=== PATIENT | female | born 1970 | race Caucasian/White ===

== ENCOUNTER 2017-09-12 11:55 | Emergency (ER) | payer BC ==
[2017-09-12 12:08] VITALS: BP 127/80; PULSE 82; TEMP 98.7; BMI 37.4
[2017-09-12] MEDS ORDERED: SODIUM CHLORIDE 0.9% 500 ML INFUS.BAG IV ONE (13:00)
--- NOTE | 2017-09-12 13:00 | PDOC ---
History of Present Illness - General Chief Complaint: Respiratory Stated Complaint: COUGH Time Seen by Provider: 09/12/17 12:37 - History of Present Illness Initial Comments: 09/12/17 13:03 47-year-old female with a history of ulcerative colitis presents with cough and back pain. Patient was diagnosed with the flu 3 days ago by her primary doctor and was started on Tamiflu. She reports she has had fevers, body aches, nausea, and nonproductive cough for 1 week. She presents today because she has developed back pain that is worse when she turns in bed and when she coughs. Denies trauma. She states the pain is in her right upper back but also in the left upper back. She reports the pain in her right upper back is greater than the left. She reports fevers with a MAXIMUM TEMPERATURE of 102 last week and reports she last had a fever this morning to 100.1. Additionally, she reports that she has been having some nonbloody diarrhea and mucousy urine. Denies dysuria, hematuria or frequency. Denies any headaches, stiff neck, vomiting, chest pain, shortness of breath, abdominal pain, lower extremity edema, focal weakness or numbness. She has been compliant with the Tamiflu but only started it 3 days ago when it was prescribed. She states she has been taking Tylenol for fever intermittently for the last week. She is concerned that she may have pneumonia. Past History - Past Medical History Allergies/Adverse Reactions: Allergies Allergy/AdvReac Type Severity Reaction Status Date / Time No Known Allergies Allergy Verified 09/12/17 11:57 Home Medications: Ambulatory Orders Guaifenesin Dm [Robitussin Dm -] 10 ml PO Q4H PRN 09/12/17 Iron/Folic AC/Vit Bcomp,C/Min [Ferrocite Plus Tablet] 1 each PO BID 09/12/17 Mercaptopurine [Purinethol -] 50 mg PO HS 09/12/17 Mesalamine [Lialda] 4 tab PO AM 09/12/17 Omeprazole 40 mg PO HS 09/12/17 Oseltamivir Phosphate [Tamiflu] 75 mg PO BID 09/12/17 Anemia: No Asthma: No Cancer: No Cardiac Disorders: No CVA: No COPD: No CHF: No Dementia: No Diabetes: No GI Disorders: Yes (PUD, ULCERATIVE COLITIS) Disorders: No HTN: No Hypercholesterolemia: No Liver Disease: No Seizures: No Thyroid Disease: No - Surgical History Abdominal Surgery: Yes (ABDOMINOPLASTY LAPARASCOPIC GASTRIC BANDING) Appendectomy: No Cardiac Surgery: No Cholecystectomy: No Lung Surgery: No Neurologic Surgery: No - Suicide/Smoking/Psychosocial Hx Smoking History: Former smoker Have you smoked in the past 12 months: No Number of Cigarettes Smoked Daily: 0 If you are a former smoker, when did you quit?: 1992 Information on smoking cessation initiated: No Hx Alcohol Use: No Drug/Substance Use Hx: No Substance Use Type: None Hx Substance Use Treatment: No Review of Systems - Review of Systems Comments:: 09/12/17 13:07 GENERAL/CONSTITUTIONAL: +fevers, no chills. No weakness. HEAD, EYES, EARS, NOSE AND THROAT: No change in vision. No ear pain or discharge. No sore throat. GASTROINTESTINAL: +nausea, diarrhea, no vomiting or constipation. GENITOURINARY: No dysuria, frequency, or change in urination. CARDIOVASCULAR: No chest pain or shortness of breath. RESPIRATORY: +cough, nowheezing, or hemoptysis. MUSCULOSKELETAL: +bodyaches and back pain SKIN: No rash NEUROLOGIC: No headache, vertigo, loss of consciousness, or change in strength/ sensation. ENDOCRINE: No increased thirst. No abnormal weight change. HEMATOLOGIC/LYMPHATIC: No anemia, easy bleeding, or history of blood clots. ALLERGIC/IMMUNOLOGIC: No hives or skin allergy. *Physical Exam - Vital Signs Last Vital Signs Temp Pulse Resp BP Pulse Ox 98.7 F 82 18 127/80 98 09/12/17 11:55 09/12/17 11:55 09/12/17 11:55 09/12/17 11:55 09/12/17 11:55 - Physical Exam Comments: 09/12/17 13:09 GENERAL: Awake, alert, and fully oriented, in no acute distress HEAD: No signs of trauma EYES: PERRLA, EOMI, sclera anicteric, conjunctiva clear ENT: Auricles normal inspection, hearing grossly normal, nares patent, oropharynx clear without exudates. Moist mucosa NECK: Normal ROM, supple, no lymphadenopathy, JVD, or masses LUNGS: Breath sounds equal, clear to auscultation bilaterally. No wheezes, and no crackles HEART: Regular rate and rhythm, normal S1 and S2, no murmurs, rubs or gallops ABDOMEN: Soft, nontender, normoactive bowel sounds. No guarding, no rebound. No masses EXTREMITIES: Normal range of motion, no edema. No clubbing or cyanosis. No cords, erythema, or tenderness NEUROLOGICAL: Normal speech, cranial nerves intact, negative pronator drift, 5/ 5 strength in all 4 extremities, normal sensation to light touch in all 4 extremities, normal cerebellar exam, normal gait, normal reflexes and tone BACK:+upper lateral thoracic ttp b/l R>L, no cervical, thoracic, or lumbar midline ttp SKIN: Warm, Dry, normal turgor, no rashes or lesions noted. ED Treatment Course - LABORATORY CBC & Chemistry Diagram: 09/12/17 13:10 09/12/17 13:10 Medical Decision Making - Medical Decision Making 09/12/17 13:10 47-year-old female with a history of ulcerative colitis, recently diagnosed the flu presents with cough and back pain when she coughs. Vitals are unremarkable. Exam is unremarkable. Given the length of the symptoms, we'll obtain basic blood work, chest x-ray, and urinalysis given her reports of mucousy urine. 09/12/17 14:52 Labs with slight leukopenia to 2.9 and mildly elevated LFTs. This may be due to her current viral infection. Discussed results w/ patient and advised her to follow up with her primary doctor tomorrow or the day after for repeat blood work. X-rays clear and negative for pneumonia. UA w trace leukesterase but otherwise unremarkable, unlikely UTI. Patient status post 2 L of fluids and feels better. Will send zofran to pharmacy given intermittent nausea. I discussed the physical exam findings, ancillary test results and final diagnoses with the patient. I answered all of the patient's questions. The patient was satisfied with the care received and felt comfortable with the discharge plan and treatment plan. The patient will call their primary care physician within 24 hours to arrange follow-up and will return to the Emergency Department with any new, persistent or worsening symptoms. *DC/Admit/Observation/Transfer Diagnosis at time of Disposition: Cough, Flu - Discharge Dispostion Disposition: HOME Condition at time of disposition: Stable Admit: No - Referrals - Patient Instructions Printed Discharge Instructions: DI for Cough -- Adult Additional Instructions: Follow-up with Dr. Janell tomorrow as discussed. Your white count was slightly low and your liver function tests were mildly elevated and should be repeated by her primary doctor. Try to stay hydrated. Return to the emergency department if you have any new, worsening or concerning symptoms. - Post Discharge Activity - Attestations Physician Attestion: 09/12/17 14:58 I, Dr. Liu Qureshi MD, attest that this document has been prepared under my direction and personally reviewed by me in its entirety. I further attest, that it accurately reflects all work, treatment, procedures and medical decision -making performed by me.
[2017-09-12 13:25] LABS: URINE APPEARANCE Clear; URINE BILIRUBIN 1+ (NEGATIVE); URINE BLOOD Negative (NEGATIVE); URINE GLUCOSE (UA) Negative (NEGATIVE); URINE KETONE Trace (NEGATIVE); URINE NITRITE Negative (NEGATIVE); URINE PROTEIN Trace (NEGATIVE); URINE UROBILINOGEN 0.2 (0.2-1.0)
[2017-09-12 13:26] LABS: URINE COLOR YELLOW
[2017-09-12 13:31] LABS: WHITE BLOOD COUNT 2.9 K/mm3 (4.0-10.8)
[2017-09-12 13:35] LABS: RDW 14.5 % (11.6-15.6)
[2017-09-12 13:39] LABS: HEMOGLOBIN 14.5 GM/dl (10.7-15.3); MCH 27.6 pg (25.7-33.7); MCHC 32.2 g/dl (32.0-36.0); MEAN CELL VOLUME 85.6 fl (80-96); PLATELET COUNT 162 K/MM3 (134-434); RBC 5.25 M/mm3 (3.60-5.2)
[2017-09-12 13:44] LABS: ALK PHOS 49 U/L (32-92); ANION GAP 6 (8-16); BILIRUBIN,TOTAL 0.3 mg/dl (0.2-1.0); BLOOD UREA NITROGEN 9 mg/dl (7-18); CALCIUM 9.3 mg/dl (8.4-10.2); CHLORIDE 105 mmol/L (98-107); CO2 24 mmol/L (22-28); CREATININE 0.8 mg/dl (0.6-1.3); GLUCOSE,RANDOM 74 mg/dl (74-106); POTASSIUM 3.8 mmol/L (3.5-5.1); SGOT/AST 56 U/L (10-42); SGPT/ALT 94 U/L (10-40); SODIUM 135 mmol/L (136-145); TOT PROT 6.9 g/dl (6.4-8.3)
[2017-09-12 18:09] LABS: URINE BACTERIA FEW /hpf (NEGATIVE)
[2017-09-12 18:41] LABS: PLATELET ESTIMATE ADEQUATE
== END 2017-09-12 15:45 | disposition home or self-care (01) ==
LOC: FER 11:55
PROC: 3E0337Z Introduction of Electrolytic and Water Balance Substance into Peripheral Vein, Percutaneous Approach (ICD-10-PCS; principal; 2017-09-12)
DX: J11.1 Influenza due to unidentified influenza virus with other respiratory manifestations (principal); R05 Cough; Z87.891 Personal history of nicotine dependence
CPT/HCPCS: 36415; 71046-TC; 80053; 81003; 81015; 84703; 85025; 87086; 99284-25